=== PATIENT | female | born 1960 | race Caucasian/White ===

== ENCOUNTER 2022-08-05 10:46 | Outpatient (REF) | payer OTHER, SELFPAY ==
[2022-08-05 12:39] LABS: Erythrocyte Sedimentation Rate 20 MM/HR (0-20)
[2022-08-05 13:45] LABS: Folate 9.2 ng/mL (> or = 4.0); Vitamin B12 573 pg/mL (200-900)
[2022-08-05 13:53] LABS: Anion Gap 11 (12-20); Blood Urea Nitrogen 13 mg/dL (9-16); Carbon Dioxide 29 mmol/L (22-29); Chloride 105 mmol/L (96-108); Estimated Glomerular Filt Rate > 60; Glucose Random 85 mg/dL (60-115); Potassium 4.5 mmol/L (3.3-5.1); Sodium 140 mmol/L (135-145)
[2022-08-05 14:12] LABS: Vitamin D 25-OH Total 24.7 ng/mL (>30)
[2022-08-06 08:58] LABS: Lyme Abs Screen <0.90 index
[2022-08-06 13:09] LABS: Anti Nuclear Antibody Screen NEGATIVE (NEGATIVE)
[2022-08-08 15:24] LABS: IgA 367 mg/dL (47-310); IgG 1321 mg/dL (600-1640); IgM 62 mg/dL (50-300)
== END 2022-08-05 10:47 | disposition home or self-care (01) ==
LOC: HO.LAB 10:46
PROVIDERS: PCP Internal Medicine; Visit Provider Psychiatry & Neurology Neurology
DX: G62.9 Polyneuropathy, unspecified (principal)
CPT/HCPCS: 36415; 80048; 82306; 82550; 82607; 82746; 82784; 85652; 86038; 86039; 86334; 86617; 86618